=== PATIENT | male | born 1980 | race Caucasian/White ===

== ENCOUNTER 2023-02-07 18:38 | Emergency (ER) | payer OTHER, SELFPAY ==
[2023-02-07 18:46] VITALS: BP 124/77; PULSE 87; RESP 22; TEMP 36.4; O2SAT 95; BMI 23.1
--- NOTE | 2023-02-07 19:25 | XR_ITS ---
The [place] [id number] Patient Name: RENEE WHEELER MRN: [id number] date: 1980 Sex: M Assigned Patient Location: ER Current Patient Location: ED.MAIN Accession/Order Number: [id number] Exam Date: 02/07/2023 19:45 Report Date: 02/07/2023 20:17 At the request of: CARSON OTT Procedure: XR hand LT min 3V EXAM: XR hand LT min 3V HISTORY: Cut third digit on rail grinder COMPARISON: None. TECHNIQUE: 3 views FINDINGS: No osseous lesion, fracture, dislocation or subluxation. Joint spaces are normal. No visualized effusion. No visualized soft tissue edema. IMPRESSION: Normal x-rays Electronically authenticated by: CORNELIO ALDANA Date: 02/07/2023 20:17
--- NOTE | 2023-02-07 19:26 | ED_ITS ---
HPI - Wound/Laceration General Chief Complaint: Wound/Laceration Stated Complaint: LT MIDDLE FINGER CUT Time Seen by Provider: 02/07/23 19:24 Source: patient Source comment: patient Mode of arrival: walk-in Limitations: no limitations History of Present Illness HPI narrative: using pigment grinder earlier today and lacerated left middle finger. Bleeding has stop. has FROM of the finger. States tetanus within the past 5 years. Concern he may have injured the bone Onset (ago): hour(s) Related Data Allergies Allergy/AdvReac Type Severity Reaction Status Date / Time No Known Drug Allergies Allergy Verified 02/07/23 18:49 Review of Systems ROS Status of ROS 10 or more systems reviewed and unremarkable except as noted in history and below PFSH PFS Social History Smoking status: Current every day smoker Exam Constitutional Vital Signs - 24 hr 02/07/23 18:46 Temperature 97.5 F L Pulse Rate [Monitor] 87 Respiratory Rate 22 Blood Pressure [Right Arm] 124/77 H Pulse Oximetry 95 Oxygen Delivery Method Room Air Common normals: no apparent distress, average body habitus, oriented x3 and no limitations HENMT Common normals: normocephalic and head/scalp atraumatic Eye Common normals: EOMs intact bilaterally and conjunctivae normal Respiratory Common normals: normal respiratory effort and no use of accessory muscles Cardio Common normals: regular rate Extremity Other: small lac left middle finger . exposure SQ tissue Neuro Common normals: oriented x3, CN's II-XII intact bilaterally, moves all extremities and no focal motor deficits Psych Appearance: grossly normal Course Vital Signs Vital signs: Vital Signs Temperature 97.5 F L 02/07/23 18:46 Pulse Rate 87 02/07/23 18:46 Respiratory Rate 22 02/07/23 18:46 Blood Pressure 124/77 H 02/07/23 18:46 Pulse Oximetry 95 02/07/23 18:46 Oxygen Delivery Method Room Air 02/07/23 18:46 Temperature 97.5 F L 02/07/23 18:46 Pulse Rate 87 02/07/23 18:46 Respiratory Rate 22 02/07/23 18:46 Blood Pressure 124/77 H 02/07/23 18:46 Pulse Oximetry 95 02/07/23 18:46 Oxygen Delivery Method Room Air 02/07/23 18:46 MDM - Wound/Laceration MDM Narrative Medical decision making narrative: patient using a pigment grinder earlier today and cut his left middle finger. lac exposed SQ tissue. Grinding material at site of wound was washed off as best as possible. Wound looks clean. closed as above. xray of the finger results pending. xray neg for fracture. patient discharged home to follow up with his doctor Discharge Plan Discharge Chief Complaint: Wound/Laceration Clinical Impression: Laceration of left middle finger Patient Disposition: Home, Self-Care Instructions: Finger Laceration (ED) Additional Instructions: have wound rechecked in 3-4 days and have stitches removed in 10 days Stand Alone Forms: Portal Instructions Referrals: MADAI MENDOZA [Nurse Practitioner] - 1 week Procedures ED Procedure Instructions Procedures Procedures: left middle finger lac into SQ tissue. 1.4cm lac at PIP joint. has some grinding material at the site of the wound. 1% lido as a local. Site cleaned with betadine and rinsed with saline. closed with # 2 4.0 nylon stitches. no complications
== END 2023-02-07 20:59 | disposition home or self-care (01) ==
PROVIDERS: Emergency Provider Internal Medicine; PCP Family Medicine
DX: S61.213A Laceration without foreign body of left middle finger without damage to nail, initial encounter (principal); W29.8XXA Contact with other powered hand tools and household machinery, initial encounter; F17.210 Nicotine dependence, cigarettes, uncomplicated
CPT/HCPCS: 12001; 73130; 99283

== ENCOUNTER 2024-02-23 08:43 | Emergency (ER) | payer SELFPAY ==
[2024-02-23] VITALS (8 sets, daily range): BP systolic 101–127; BP diastolic 63–92; PULSE 101; TEMP 37; O2SAT 98–99; BMI 23.1
--- NOTE | 2024-02-23 09:12 | CT_ITS ---
[address] [address] Patient Name: RENEE WHEELER MRN: [id number] date: 1980 Sex: M Assigned Patient Location: ER Current Patient Location: Accession/Order Number: [id number] Exam Date: 02/23/2024 09:42 Report Date: 02/23/2024 10:31 At the request of: CALLY BORRERO Procedure: CT abdomen pelvis w con EXAMINATION: CT abdomen pelvis w con HISTORY: right groin pain and cellulitis COMPARISON: No relevant comparison available. TECHNIQUE: CT images were created with IV contrast. Axial, Coronal, and Sagittal images. Dose reduction techniques were achieved by using automated exposure control and/or adjustment of mA and/or kV according to patient size and/or use of iterative reconstruction technique. FINDINGS: LUNG BASES: No visible pulmonary or pleural disease. LIVER: Hypodensity in the left hepatic lobe, a cyst is favored BILIARY: Cholelithiasis without CT evidence of acute cholecystitis PANCREAS: No lesion, fluid collection, ductal dilatation, or atrophy. SPLEEN: No enlargement or focal lesion. ADRENALS: No mass or enlargement. KIDNEYS: No mass, obstruction, or calcification. BOWEL/MESENTERY: No visible mass, obstruction, or bowel wall thickening. Normal appendix AORTA/VASCULAR: No aneurysm or dissection. RETROPERITONEUM: No mass or adenopathy. LYMPH NODES: No adenopathy. URINARY BLADDER: No visible focal wall thickening, lesion, or calculus. PELVIC ORGANS: No visible mass. Pelvic organs appropriate for patient age. ABDOMINAL WALL: No mass or hernia. BONES: No bony lesion or fracture. OTHER: Right inguinal subcutaneous fat stranding, subcutaneous air and skin thickening extending into the right hemiscrotum CT/CT abdomen pelvis w con IMPRESSION: Inflammatory changes of the right groin with subcutaneous air. Consider cellulitis with a gas-forming organism/necrotizing fasciitis Electronically authenticated by: CORNELIO LESTER Date: 02/23/2024 10:31
--- NOTE | 2024-02-23 09:13 | US_ITS ---
The [address] [address] Patient Name: RENEE WHEELER MRN: [id number] date: 1980 Sex: M Assigned Patient Location: ED.MAIN Current Patient Location: Accession/Order Number: [id number] Exam Date: 02/23/2024 10:00 Report Date: 02/23/2024 10:42 At the request of: CALLY BORRERO Procedure: US scrotum doppler EXAM: US scrotum doppler HISTORY: pain and swelling COMPARISON: CT exam same day. TECHNIQUE: Grayscale, color and Doppler FINDINGS: The right testicle is normal in size, contour and homogeneous echotexture measuring 4.4 x 2.3 x 3.0 cm. No focal mass. Normal color and Doppler flow The right epididymis is normal in size. 1 cm area of anechoic echogenicity, cyst versus spermatocele. Tiny right hydrocele. No right varicocele. The left testicle is normal in size, contour and homogeneous echotexture measuring 4.3 x 2.1 x 3.0 cm. No focal mass. Normal color and Doppler flow The left epididymis is normal in size. Tiny left hydrocele. No left varicocele Identified in the right inguinal canal in the region of the patient's redness is heterogeneous hypervascular measuring 5.7 x 3.5 x 2.8 cm US/US scrotum doppler IMPRESSION: No evidence of testicular torsion Right inguinal heterogeneous hypervascularity consistent with known infection by CT exam Electronically authenticated by: CORNELIO LESTER Date: 02/23/2024 10:42
[2024-02-23 09:35] LABS: Hematocrit 46.3 % (42.0-54.0); Hemoglobin 15.5 g/dL (14.0-18.0); Mean Corpuscular HGB Conc 33.5 g/dL (29.9-35.2); Mean Corpuscular Hemoglobin 31.6 pg (25.9-34.0); Mean Corpuscular Volume 94.3 fL (80.0-94.0); Mean Platelet Volume 9.6 fL (9.5-13.5); Platelet Count 315 10^3/uL (150-450); Red Blood Count 4.91 10^6/uL (4.70-6.10); Red Cell Distribution Width 13.4 % (11.0-15.0); White Blood Count 27.7 10^3/uL (4.0-11.0)
[2024-02-23] MEDS: 0.9 % SODIUM CHLORIDE 1,000 ML 1000 ML IV ×2 (09:39→11:13)
[2024-02-23] MEDS: AMPICILLIN SODIUM/SULBACTAM NA 3 GM in 0.9 % SODIUM CHLORIDE 100 ML IV (09:40)
[2024-02-23 09:50] LABS: Alanine Aminotransferase 25 U/L (16-63); Albumin Globulin Ratio 0.8; Albumin Level 3.5 g/dL (3.4-5.0); Alkaline Phosphatase 111 U/L (46-116); Anion Gap 12.3; Aspartate Amino Transferase 11 U/L (15-37); BUN Creatinine Ratio 9.8; Bilirubin Total 1.5 mg/dL (0.2-1.0); Calcium 9.1 mg/dL (8.5-10.1); Carbon Dioxide 27.4 mmol/L (21.0-32.0); Chloride 101 mmol/L (98-107); Estimated GFR (African America >60 (>=60); Estimated GFR (Non-African Ame >60 (>=60); Globulin 4.4 g/dL; Glucose 113 mg/dL (74-106); Potassium 3.7 mmol/L (3.5-5.1); Sodium 137 mmol/L (136-145); Total Protein 7.9 g/dL (6.4-8.2)
--- NOTE | 2024-02-23 09:51 | ED_ITS ---
HPI - Abdominal Pain General Chief Complaint: Abdominal Pain Stated Complaint: FEVER/ABDOMINAL PAIN Time Seen by Provider: 02/23/24 09:05 Source: patient Mode of arrival: walk-in Limitations: no limitations History of Present Illness HPI narrative: The patient presenting to us with a few days history, fever and chills and right groin pain, the patient denies any fall or trauma, he thinks he may be have a pimple or a spider bite in his groin area. The patient have decreased p.o. intake for the last 24 hours and feeling sick Patient also have nausea and vomiting at home in addition to diarrhea and he feels that the pain is going to his right flank area No burning with urination no history of trauma Related Data Home Medications ?Medication ?Instructions ?Recorded ?Confirmed mometasone-formoterol HFA 50 mcg-5 2 inh inhalation BID 02/23/24 02/23/24 mcg/actuation aerosol inhaler (Dulera) Allergies Allergy/AdvReac Type Severity Reaction Status Date / Time No Known Drug Allergies Allergy Verified 02/07/23 18:49 Review of Systems ROS Status of ROS 10 or more systems reviewed and unremark able except as noted in history and below [facility] Social History Smoking status: Current every day smoker Exam Narrative Exam Narrative: Nurses notes and vital signs reviewed and patient is not hypoxic. General: Well-appearing and in no apparent distress. Skin: Warm, dry, no pallor noted. No rash. Head: Normocephalic, atraumatic. Neck: Supple, non-tender. Eye: Pupils are equal, round and EOMI. No scleral icterus. Ears, Nose, Mouth, and Throat: TM are clear, no nasal mucosal hypertrophy. Oral mucosa is moist, no posterior oropharynx erythema, uvula is mid-line Cardiovascular: Regular Rate and Rhythm without murmur, gallop or rub. Respiratory: No accessory muscle use or respiratory distress. Lungs are clear to auscultation, no wheezing, rales or rhonchi Chest Wall: no tenderness Back: No midline thoracic or lumbar vertebral tenderness. No CVA tenderness Musculoskeletal: normal ROM, no calf or popliteal tenderness, no lower extremity edema/swelling GI: Abdomen is soft, non-distended. Normal bowel sounds. No masses appreciated. No tenderness to palpation. No rebound, guarding, or rigidity noted. Examination of the groin area showed that the patient have induration of the skin at the medial aspect of the scrotum with no fluctuation. No obvious opening or entrance wound The patient skin induration and redness cover at least one third of the skin of the scrotum on the right side, no rashes and the testicles themselves are not indurated or tender Neurological: A&O x4. No cranial nerve dysfunction observed. No truncal ataxia. Moves all extremities. Sensation intact. Psychiatric: Cooperative and interactive. Normal mood and affect. Constitutional Vital Signs, click to edit/add: Last Vital Signs Temp 98.6 F 02/23/24 09:00 Pulse 101 H 02/23/24 09:00 Resp 18 02/23/24 09:00 BP 115/84 02/23/24 12:30 Pulse Ox 99 02/23/24 09:09 O2 Del Method Room Air 02/23/24 09:00 Course Vital Signs Vital signs: Vital Signs Temperature 98.6 F 02/23/24 09:00 Pulse Rate 101 H 02/23/24 09:00 Respiratory Rate 18 02/23/24 09:00 Blood Pressure 124/80 02/23/24 09:00 Pulse Oximetry 98 02/23/24 09:00 Oxygen Delivery Method Room Air 02/23/24 09:00 Temperature 98.6 F 02/23/24 09:00 Pulse Rate 101 H 02/23/24 09:00 Respiratory Rate 18 02/23/24 09:00 Blood Pressure 115/84 02/23/24 12:30 Pulse Oximetry 99 02/23/24 09:09 Oxygen Delivery Method Room Air 02/23/24 09:00 MDM - Abdominal Pain MDM Narrative Medical decision making narrative: Upon arrival the patient was started on this possible sepsis workup The patient CBC shows leukocytosis blood culture already obtained and the patient was started on Unasyn awaiting the lactic acid and blood culture 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 Rizo and he recommended t he patient will be transferred to after surgery facility The patient will be transferred to [facility] Dr. Linares in the ER accepted the patient and in urology service also accepted the patient after discussing the case with both of them Patient was covered initially with Unasyn then Vanco and clindamycin added but urology service recommended Zosyn and it was added Patient lactic acid 1.5 he received a liter of fluid and there is another liter running Awaiting the transfer at 1:30 PM by the ambulance Lab Data Labs: Lab Results 02/23/24 02/23/24 Range/Units 09:09 09:15 WBC 27.7 H (4.0-11.0) 10^3/uL RBC 4.91 (4.70-6.10) 10^6/uL Hgb 15.5 (14.0-18.0) g/dL Hct 46.3 (42.0-54.0) % MCV 94.3 H (80.0-94.0) fL MCH 31.6 (25.9-34.0) pg MCHC 33.5 (29.9-35.2) g/dL RDW 13.4 (11.0-15.0) % Plt Count 315 (150-450) 10^3/uL MPV 9.6 (9.5-13.5) fL Seg Neuts % (Manual) 79.0 Band Neutrophils % 4.0 (0-5) % Lymphocytes % (Manual) 7.0 L (20.5-60.0) % Monocytes % (Manual) 6.0 (1.7-12.0) % Eosinophils % (Manual) 4.0 (0.9-7.0) % Basophils % (Manual) 0.0 L (0.2-2.0) % Neutrophils # (Manual) 21.88 H (1.4-6.5) 10^3/uL Band Neutrophils # 1.1 H (0.0-0.3) 10^3/uL Lymphocytes # (Manual) 1.93 (1.20-3.80) 10^3/uL Monocytes # (Manual) 1.66 H (0.30-0.80) 10^3/uL Eosinophils # (Manual) 1.10 H (0.00-0.70) 10^3/uL Basophils # (Manual) 0.00 (0.00-0.10) 10^3/uL Sodium 137 (136-145) mmol/L Potassium 3.7 (3.5-5.1) mmol/L Chloride 101 (98-107) mmol/L Carbon Dioxide 27.4 (21.0-32.0) mmol/L Anion Gap 12.3 BUN 10.0 (7.0-18.0) mg/dL Creatinine 1.02 (0.70-1.30) mg/dL Est GFR ( Amer) >60 (>=60) Est GFR (Non-Af Amer) >60 (>=60) BUN/Creatinine Ratio 9.8 Glucose 113 H (74-106) mg/dL Lactate 1.5 (0.4-2.0) mmol/L Calcium 9.1 (8.5-10.1) mg/dL Total Bilirubin 1.5 H (0.2-1.0) mg/dL AST 11 L (15-37) U/L ALT 25 (16-63) U/L Alkaline Phosphatase 111 (46-116) U/L Total Protein 7.9 (6.4-8.2) g/dL Albumin 3.5 (3.4-5.0) g/dL Globulin 4.4 g/dL Albumin/Globulin Ratio 0.8 Urine Color Dk. orange (YELLOW) Urine Clarity Clear (CLEAR) Urine pH Color interference A (5.0-9.0) Ur Specific [place] 1.025 (1.005-1.025) Urine Protein Color interference A (NEG/TRACE) mg/dL Urine Glucose (UA) Color interference A (NEGATIVE) mg/dL Urine Ketones Color interference A (NEGATIVE) mg/dL Urine Occult Blood Color interference A (NEGATIVE) Urine Nitrite Color interference A (NEGATIVE) Urine Bilirubin Color interference A (NEGATIVE) Urine Urobilinogen Color interference A (0.2-1.0) EU/dL Ur Leukocyte Esterase Color interference A (NEGATIVE) Urine RBC 0-2 (0-2) #/HPF Urine WBC 2-5 A (NONE SEEN) #/HPF Ur Squamous Epith Cells None seen (NONE/RARE) #/LPF Urine Crystals None seen (None Seen) #/HPF Urine Bacteria Trace A (NONE SEEN) #/HPF Urine Casts None seen (NONE SEEN) #/LPF Urine Mucus Large A (NONE SEEN) Ur Culture Indicated? No Discharge Plan Discharge Chief Complaint: Abdominal Pain Clinical Impression: Drake gangrene Sepsis Qualifiers: Sepsis type: sepsis due to unspecified organism Sepsis acute organ dysfunction status: unspecified Qualified Code(s): A41.9 - Sepsis, unspecified organism Patient Disposition: Xfer Acute Care Hospital Time of Disposition Decision: 13:03 Discharge location: [facility] Condition: Fair
[2024-02-23 09:55] LABS: Lactate/Lactic Acid 1.5 mmol/L (0.4-2.0)
[2024-02-23 09:58] LABS: Band Neutrophils Absolute 1.1 10^3/uL (0.0-0.3); Lymphocytes Absolute Manual 1.93 10^3/uL (1.20-3.80); Monocytes Absolute Manual 1.66 10^3/uL (0.30-0.80); Segmented Neut Absolute Manual 21.88 10^3/uL (1.4-6.5)
[2024-02-23] MEDS: CLINDAMYCIN PHOS 300 MG/50 ML PIGGYBACK 100 MG IV (11:13)
[2024-02-23] MEDS: VANCOMYCIN HCL 1,000 MG in 0.9 % SODIUM CHLORIDE 250 ML 250 MG IV (11:15)
[2024-02-23 11:34] LABS: Clarity Urine CLEAR (CLEAR); Color Urine DK. ORANGE (YELLOW); Specific Gravity Urine 1.025 (1.005-1.025)
[2024-02-23 11:35] LABS: Bilirubin Urine COLOR INTERFERENCE (NEGATIVE); Blood Urine COLOR INTERFERENCE (NEGATIVE); Glucose Urine UA COLOR INTERFERENCE mg/dL (NEGATIVE); Ketones Urine COLOR INTERFERENCE mg/dL (NEGATIVE); Leukocyte Esterase Urine COLOR INTERFERENCE (NEGATIVE); Nitrite Urine COLOR INTERFERENCE (NEGATIVE); Protein Urine COLOR INTERFERENCE mg/dL (NEG/TRACE); Urine Microscopic Indicated YES; Urobilinogen Urine COLOR INTERFERENCE EU/dL (0.2-1.0); pH Urine COLOR INTERFERENCE (5.0-9.0)
[2024-02-23 11:46] LABS: Bacteria Urine TRACE #/HPF (NONE SEEN); Crystals Seen? None Seen #/HPF (None Seen); Mucus Urine LARGE (NONE SEEN); RBC Urine 0-2 #/HPF (0-2); Squamous Epithelial Cell Urine NONE SEEN #/LPF (NONE/RARE)
[2024-02-23 11:47] LABS: Cast Seen? NONE SEEN #/LPF (NONE SEEN); Urine Culture Indicated NO
[2024-02-23] MEDS: PIPERACILLIN SODIUM/TAZOBACTAM 4.5 GM in 0.9 % SODIUM CHLORIDE 50 ML IV (12:08)
== END 2024-02-23 13:16 | disposition short-term general hospital (02) ==
PROVIDERS: Emergency Provider Emergency Medicine; PCP Family Medicine
DX: A41.9 Sepsis, unspecified organism (principal); N49.3 Fournier gangrene; F17.200 Nicotine dependence, unspecified, uncomplicated
CPT/HCPCS: 36415; 74177; 76870; 80053; 81001; 83605; 85007; 85027; 87040; 93976; 96361; 96365; 96367; 96368; 99285; J0295; J2543; J3370; Q9967